=== PATIENT | male | born 1970 | race Caucasian/White ===

== ENCOUNTER 2021-01-19 14:36 | Inpatient (IN) | payer MEDICAID, SELFPAY ==
[2021-01-19] VITALS (33 sets, daily range): BP systolic 105–142; BP diastolic 56–88; PULSE 53–93; RESP 12–26; TEMP 36.6–37; O2SAT 95–99; BMI 22.3
--- NOTE | ~2021-01-19 | XR_ITS ---
EXAMINATION: XR chest 1V portable 01/19/2021 14:54 INDICATION: Shortness of breath PROCEDURE: AP portable chest COMPARISON: 10/10/2003 FINDINGS: The lungs are clear. The cardiomediastinal silhouette is within normal limits. There are no pleural effusions. There is no pneumothorax suspected. IMPRESSION: 1: NO ACUTE CARDIOPULMONARY DISEASE. Reviewed, dictated and finalized at location A.
--- NOTE | ~2021-01-19 | MR_ITS ---
EXAMINATION: MR brain/brain stem wo/w con EXAM DATE: 01/20/2021 09:29 INDICATION: Stroke symptoms, slurred speech, right arm. TECHNIQUE: Magnetic resonance imaging (MRI) of the brain/brain stem obtained without contrast. Sagit marry T1, axial diffusion, gradient echo (T2*), T1, T2, FLAIR sequences obtained. Patient was then inj ected with 14 cc intravenous Multihance contrast. Axial and coronal postcontrast T1 weighted sequence s obtained. Comparison is made to prior examination from 01/19/2021. FINDINGS: There is acute left-sided lacunar infarction along the posterior limb of the internal capsu le, posterior aspect of the putamen. No larger territorial infarctions. There is no acute hemorrhage seen on the T2*, a hemosiderin sensitive sequence. No intraparenchymal brain mass. The ventricles a re normal in size. There are no extra-axial collections. Flow voids are seen in the cerebral arteri es on the T2-weighted sequences consistent with their expected patency. The orbits are unremarkable. Soft tissue is unremarkable. IMPRESSION: Acute left internal capsular/putamen lacunar infarction. Reviewed, dictated and finalized at location A.
--- NOTE | ~2021-01-19 | CT_ITS ---
EXAMINATION: CTA brain carotid DATE: 01/19/2021 16:12 CDT INDICATION: Right arm numbness and slurred speech. TECHNIQUE: Computed tomographic angiography (CTA) of the head was performed without and with 100 mL O mnipaque-350 intravenous contrast. CTA of the neck was performed with intravenous contrast. The dose- length product was 1773.83 mGy-cm. Maximum intensity projection and volume rendered 3D-reconstruction s were created by the technologist on a separate workstation. Automated exposure control and iterativ e reconstruction technique were employed. COMPARISON: None. FINDINGS: HEAD CT/CTA: Normal brain parenchymal volume. No acute intracranial hemorrhage, infarction, mass or m ass effect. No ventriculomegaly or midline shift. Basilar cisterns are patent. Paranasal sinuses and mastoids are pneumatized. No depressed skull fractures. Structures of the posterior fossa are unremar kable. The major intracerebral arteries are within normal limits without evidence for aneurysm, steno sis, occlusion. NECK CTA: The visualized aspects of the aorta and great vessels are within normal limits. The common carotid, internal carotid and vertebral arteries are within normal limits. No evidence for significan t stenosis, occlusion or dissection. There is 0% stenosis of the proximal right internal carotid artery relative to normal distal artery l umen diameter (NASCET criteria). There is 0% stenosis of the proximal left internal carotid artery re lative to normal distal artery lumen diameter. IMPRESSION: 1: No acute intracranial abnormality. 2: No significant intracranial or cervical vascular abnormalities. Reviewed, dictated and finalized at location A.
--- NOTE | ~2021-01-19 | US_ITS ---
EXAMINATION: US carotid duplex BI EXAM DATE: 01/20/2021 09:44 INDICATION: Left internal capsule and putamen acute lacunar infarction. Stroke like symptoms. TECHNIQUE: Grayscale, color and pulsed Doppler images of the cervical carotid arteries were obtained . The degree of vessel stenosis is placed in one of the following categories: normal, <50% stenosis, 50-69% stenosis, >=70% stenosis but less than near-occlusion, near-occlusion, or occlusion. Note that percent stenosis relative to normal distal artery lumen diameter is indirectly measured from velocit y measurements as described by Beau, et al. Radiology 2003; 229:340-346. There is no prior study fo r comparison. FINDINGS: RIGHT SIDE: Right common carotid artery peak systolic velocity (PSV in cm/s): 92 Right bulb/internal carotid artery peak systolic velocity (PSV in cm/s): 70 Right internal carotid artery end diastolic velocity (EDV in cm/s): 22 Right ICA/CCA peak systolic ratio: 0.8 Right external carotid artery peak systolic velocity (PSV in cm/s): 79 Right vertebral artery antegrade flow: yes There is no focal plaque identified. LEFT SIDE: Left common carotid artery peak systolic velocity (PSV in cm/s): 76 Left bulb/internal carotid artery peak systolic velocity (PSV in cm/s): 64 Left internal carotid artery end diastolic velocity (EDV in cm/s): 22 Left ICA/CCA peak systolic ratio: 0.8 Left external carotid artery peak systolic velocity (PSV in cm/s): 51 Left vertebral artery antegrade flow: yes There is no focal plaque identified. IMPRESSION: 1. Normal right internal carotid artery. 2. Normal left internal carotid artery. Reviewed, dictated and finalized at location A.
--- NOTE | ~2021-01-19 | US_ITS ---
EXAMINATION: US venous doppler LE EXAM DATE: 01/21/2021 10:50 INDICATION: Stroke. ASD/PFO (axial septal defect/patent foramen ovale). TECHNIQUE: Multiple grayscale, color flow and Doppler images of the lower extremity deep venous syste ms bilaterally were obtained and reviewed. There is no prior study for comparison. FINDINGS: Right side: The right common femoral, femoral and profunda veins demonstrate normal color flow, respi ratory variation, augmentation and compressibility. Compressibility, color flow confirmed within the right popliteal, posterior tibial, peroneal, and greater saphenous veins. Left side: The left common femoral, femoral and profunda veins demonstrate normal color flow, respira tory variation, augmentation and compressibility. Compressibility, color flow confirmed within the l eft popliteal, posterior tibial, peroneal, and greater saphenous veins. IMPRESSION: No lower extremity deep venous thrombosis bilaterally. Reviewed, dictated and finalized at location A.
--- NOTE | 2021-01-19 14:42 | ECG_ITS ---
Measurements Intervals [place] Rate: 60 P: 79 SC: 126 QRS: 80 QRSD: 97 T: 70 QT: 362 QTc: 364 Interpretive Statements SINUS RHYTHM WITH SINUS ARRHYTHMIA POSSIBLE LEFT ATRIAL ENLARGEMENT INCOMPLETE RIGHT BUNDLE BRANCH BLOCK ST ELEVATION IN ANTERIOR LEADS- PROBABLY EARLY REPOLARIZATION ABNORMALITY BASELINE ARTIFACT- I, II, III, AVR, AVL, AVF, V1-V6 BORDERLINE ECG Electronically Signed On 01-19-2021 15:06:47 CDT by Demar Alejandro D.O.
--- NOTE | 2021-01-19 14:45 | ED.NEUROSD ---
HPI - Neuro Symptoms/Deficit General Chief Complaint: Suspected CVA Stated Complaint: r/o CVA Time Seen by Provider: 01/19/21 14:38 Source: patient Limitations: no limitations History of Present Illness HPI Narrative: 50-year-old male no past medical history has not seen a doctor in a few years complaining of right arm feels like it is falling asleep also has some slurred speech on arrival. Patient states symptoms started yesterday morning, he woke up with them. No previous history of same. Denies fall, denies headache, no vomiting. No chest pain, no palpitations no shortness of breath. Arrives alert and oriented x3 answering all questions afebrile. Onset (ago): day(s) (28 hours) Related Data Home Medications Medication Instructions Recorded Confirmed No Home Medications 01/19/21 01/19/21 Allergies Allergy/AdvReac Type Severity Reaction Status Date / Time No Known Drug Allergies Allergy Unknown Verified 01/19/21 19:04 Review of Systems Review of Systems: CONSTITUTIONAL: no fever, no weight loss, no confusion EYES: no vision changes, no eye pain ENT: no rhinorrhea, no sore throat, no difficulty swallowing CARDIOVASCULAR: no chest pain, no leg edema, no palpitations RESPIRATORY: no cough, no shortness of breath, no hemoptysis GASTROINTESTINAL: no abdominal pain, no nausea, no vomiting, no diarrhea GENITOURINARY: no flank pain, no dysuria, no hematuria SKIN: no rash, no jaundice MUSCULOSKELETAL: no back pain, no trauma. NEUROLOGIC: No headache, no dizziness, no focal weakness, R arm numbness, mild dysarthria on arrival PSYCHIATRIC: No hallucinations, no suicidal ideation [facility] Past Medical History Medical History (Updated 01/19/21 @ 23:28 by Angelika Mcneal PA-C) Nicotine dependence Surgical History Surgical History (Updated 01/19/21 @ 23:23 by Angelika Mcneal PA-C) No history of previous surgery Family History Family History Mother Lung cancer Sibling Heart disease Social History Social History (Updated 01/19/21 @ 23:25 by Angelika Mcneal PA-C) Social History: Surrogate decision-maker: Marie Watts, sister. CODE STATUS: Full code. Smoking packs per day: 1 Smoking cigarettes per day: 20.0 Alcohol intake: never Substance use: never Substance use type: does not use Additional living arrangements comments: Lives in [place] with his son. Additional occupation/education comments: [employer]. Exam Narrative: General: alert, afebrile, answering all questions appropriately Head: normocephalic, atraumatic Eyes: EOMI bilaterally, anicteric, no injection ENT: dry mucous membranes, oropharynx patent, no rhinorrhea Neck: supple, trachea midline, no JVD Chest: equal chest rise bilaterally, no chest wall trauma noted Lungs: clear to auscultation bilaterally, respirations unlabored CV: regular rate, no ROSEMARY B, calf size equal bilaterally Abd: soft, non-distended, non-tender, no rebound, no gaurding, negative Lyn's EXT: no deformity noted, moving all extremities equally Skin: warm, dry, no pallor Neuro: alert, oriented x 3; CN 2-12 grossly intact, no dysarthria Psych: affect appropriate, though content normal Course Course Emergency Course: 1500 Spoke with hospitalist regarding admission for CVA; patient and family now agree with plan. Reevaluation(s) Reevaluation #1: Reevaluated patient with family. No longer has any facial drooping but he does have slurred speech. No pronator drift, no focal weakness. Patient thinking about leaving advised that would be AGAINST MEDICAL ADVICE Date: 01/19/21 Time: 17:22 Vital Signs Vital signs: Vital Signs Pulse Rate 70 01/19/21 14:42 Respiratory Rate 15 01/19/21 14:42 Pulse Oximetry 99 01/19/21 14:42 Temperature 37.0 C 01/19/21 22:00 Pulse Rate 54 L 01/20/21 00:00 Respiratory Rate 16 01/19/21 22:00 Blood Pressure 105/56 L 01/19/21 22:00
[2021-01-19 14:54] LABS: Basophils Absolute Auto 0.1 K/mm3 (0.0-0.1); Basophils Percent Auto 0.6 % (0.2-1.2); Eosinophils Absolute Auto 0.1 K/mm3 (0-0.3); Eosinophils Percent Auto 1.4 % (0-4.4); Hematocrit 46.6 % (42.0-52.0); Hemoglobin 15.9 g/dL (14.0-18.0); Immature Granulocyte Absolute 0.03 K/mm3 (0.00-0.031); Immature Granulocyte Percent A 0.4 % (0-0.5); Lymphocytes Absolute Auto 2.82 K/mm3 (0.9-3.2); Lymphocytes Percent Auto 33.1 % (18.3-44.2); Mean Corpuscular HGB Conc 34.1 g/dl (32-36); Mean Corpuscular Hemoglobin 33.6 pg (26-34); Mean Corpuscular Volume 98.5 fl (80-100); Mean Platelet Volume 9.7 fl (7.4-10.4); Monocytes Absolute Auto 0.5 K/mm3 (0.1-0.6); Monocytes Percent Auto 5.9 % (2.6-8.5); Neutrophils Percent Auto 58.6 % (45.5-73.1); Platelet Count Result 215 k/mm3 (150-375); Red Blood Count 4.73 M/mm3 (4.6-6.20); Red Cell Distribution Width 12.8 % (11.5-14.5); White Blood Count 8.5 K/mm3 (4.5-10.0)
[2021-01-19 15:04] LABS: INR 0.8; Prothrombin Time 11.5 Seconds (11.1-14.7)
[2021-01-19 15:05] LABS: Partial Thromboplastin Time 24.1 SECONDS (22.3-36.8)
[2021-01-19 15:08] LABS: Alanine Aminotransferase 22 U/L (4-50); Albumin Level 4.7 g/dL (3.5-5.1); Alkaline Phosphatase 60 U/L (38-126); Anion Gap 8 mmol/L (8-16); Aspartate Amino Transferase 27 U/L (17-59); Bilirubin,Total 0.6 mg/dL (0.2-1.3); Blood Urea Nitrogen 9 mg/dL (9-20); Calcium 9.6 mg/dL (8.4-10.2); Carbon Dioxide 28 mmol/L (22-30); Chloride 104 mmol/L (98-107); Estimated CRCL calculation 90 ml/min; Estimated Glomerular Filt Rate > 60; Glucose 107 mg/dL (65-110); Potassium 4.3 mmol/L (3.4-5.0); Sodium 140 mmol/L (137-145)
[2021-01-19 15:20] LABS: Troponin I < 0.012 ng/mL (0.000-0.034)
[2021-01-19] MEDS: ASPIRIN 325 MG TABLET PO (17:54)
--- NOTE | 2021-01-19 19:00 | PM.IMHP ---
H&P: HPI History of Present Illness Date/Time: 01/19/21 20:00 Chief Complaint: Slurred speech and right arm weakness. Narrative: This is a very pleasant 50-year-old male smoker without any significant medical history presented to emergency department earlier today via private vehicle from home for evaluation of slurred speech and right arm weakness. He woke up on Wednesday morning with a strange feeling in his right upper extremity that he has a difficult time describing, perhaps blunted sensation but he also noticed mild dexterity issues in the fingers, for instance he was having a difficult time writing. He also had some mild paresthesias in the right lower lip. Later on that day his son noticed that his speech was slurred and as his symptoms had not improved today he decided to come in for evaluation. CTA of the head and neck done on arrival to the emergency department showed no acute abnormalities. He is being admitted in this setting for further work-up. At the time my evaluation he has no specific complaints. He specifically denies headache, vertigo, auditory and visual changes, focal weakness, facial droop, and dysphagia. No history of cardiac dysrhythmia however he has previously had fleeting and self-limiting episodes of fluttering in his chest never lasting more than 5 seconds. That has not occurred recently. Review of Systems Review of Systems: 12 systems were reviewed. No fever, chills, or sweats. No recent cold or flu symptoms. Weight has remained stable. No sick contacts. No chest pain or shortness of breath. No cough. No nausea, vomiting, diarrhea, or dysuria. Except as documented, all other systems were reviewed and are negative. [facility] Past Medical History Medical History (Updated 01/19/21 @ 23:28 by Angelika Mcneal PA-C) Nicotine dependence Surgical History Surgical History (Updated 01/19/21 @ 23:23 by Angelika Mcneal PA-C) No history of previous surgery Family History Family History Mother Lung cancer Sibling Heart disease Social History Social History (Updated 01/19/21 @ 23:25 by Angelika Mcneal PA-C) Social History: Surrogate decision-maker: Marie Watts, sister. CODE STATUS: Full code. Smoking packs per day: 1 Smoking cigarettes per day: 20.0 Alcohol intake: never Substance use: never Substance use type: does not use Additional living arrangements comments: Lives in [place] with his son. Additional occupation/education comments: [employer]. Meds Home Medications and Allergies Home Medications Medication Instructions Recorded Confirmed Type No Home Medications 01/19/21 01/19/21 History Allergies Allergy/AdvReac Type Severity Reaction Status Date / Time No Known Drug Allergies Allergy Unknown Verified 01/19/21 19:04 Vital Signs Vital Signs - 24 hr 01/19/21 14:42 01/19/21 14:43 01/19/21 14:45 Temperature Pulse Rate 70 76 Respiratory Rate 15 13 14 Blood Pressure 138/81 Pulse Oximetry 99 98 97 01/19/21 14:46 01/19/21 14:51 01/19/21 15:00 Temperature 97.8 F Pulse Rate 76 78 67 Respiratory Rate 12 14 13 Blood Pressure 135/81 135/81 Pulse Oximetry 98 98 96 01/19/21 15:01 01/19/21 15:02 01/19/21 15:15 Temperature Pulse Rate 67 70 55 L Respiratory Rate 15 14 12 Blood Pressure 124/84 Pulse Oximetry 97 96 01/19/21 15:16 01/19/21 15:30 01/19/21 15:31 Temperature Pulse Rate 56 L 53 L Respiratory Rate 13 13 Blood Pressure 126/73 123/76 Pulse Oximetry 96 95 01/19/21 15:47 01/19/21 15:49 01/19/21 16:00 Temperature Pulse Rate 93 82 58 L Respiratory Rate 20 26 H 13 Blood Pressure 135/85 Pulse Oximetry 96 99 97 01/19/21 16:01 01/19/21 16:16 01/19/21 16:30 Temperature Pulse Rate 62 55 L 56 L Respiratory Rate 14 14 14 Blood Pressure 121/70 118/76 Pulse Oximetry 98 97 97 01/19/21 16:31 01/19/21 16:45 01/19/21 16:4
--- NOTE | 2021-01-19 19:01 | ADMGEN ---
This patient, Alex Gutierrez, was admitted to Medical Room 347-. Patient/family oriented to hospital policies and general routines including ID bracelet, bed and alarms, visiting hours, pain management, procedures, bathroom and other care routines, personal items, smoking policy, room service/diet, and visiting hours. Information on how to activate the Rapid Response Team has been discussed. Patient/Family are encouraged to report perceived risks to care and to ask questions if they do not understand what they are told or what they should do.
[2021-01-19 21:15] LABS: Troponin I < 0.012 ng/mL (0.000-0.034)
[2021-01-20] VITALS (10 sets, daily range): BP systolic 105–115; BP diastolic 57–79; PULSE 48–72; RESP 16–18; TEMP 35.8–36.9; O2SAT 96–97
--- NOTE | 2021-01-20 | ECHO_ITS ---
Patient Info Name: Alex Gutierrez Age: 50 years : 1970 Gender: Male Ht: 71 in Wt: 159 lbs BSA: 1.90 m2 HR: 52 bpm BP: 105 / 79 mmHg Heart Rhythm: Sinus Rhythm Technical Quality: Good Exam Date: 01/20/2021 10:47 AM Exam Location: [facility] Pulmonary Exam Room: [facility] Patient Status: Inpatient Admit Date: 01/19/2021 Staff Ordering Physician: Angelika Mcneal PA-C Info Analyst: Lashanda Ryan RDCS Attending Provider: Jayda Lake PA-C Referring Physician: Fredis SCOTT; Exam Type: CA echo doppler w bubble study Study Info Indications - stroke symptoms Complete two-dimensional, color flow and Doppler transthoracic echocardiogram is performed with agitated saline. Contrast/Agitated Saline Contrast/Ag. Saline: Agitated Saline Amount: --- ml Administered By: Swetha Medina RN Existing IV Access: Yes IV Access Condition: patent with no signs of infiltration New IV Access: Left Summary 1. Left ventricular chamber dimension is normal. 2. Left ventricular systolic function is normal, estimated at 65-70%. 3. There is no increased left ventricular wall thickness. 4. The left ventricular diastolic function is grade I diastolic dysfunction. 5. Intracardiac shunt at the atrial level with and without Valsalva suggestive of small ASD versus PFO. 6. There is no mitral valve regurgitation. 7. There is trace tricuspid valve regurgitation. 8. No pulmonary hypertension, estimated pulmonary arterial systolic pressure is 31 mmHg. Recommendations * Consider transesophageal echocardiogram if clinically indicated. Left Ventricle Left ventricular chamber dimension is normal. Left ventricular systolic function is normal, estimated at 65-70%. There is no increased left ventricular wall thickness. The left ventricular diastolic function is grade I diastolic dysfunction. Right Ventricle Right ventricular chamber dimension is normal. Right ventricular systolic function is normal. Left Atria Left atrial chamber dimension is normal. Right Atria Right atrial chamber dimension is normal. Atrial Septum Intracardiac shunt at the atrial level with and without Valsalva suggestive of small ASD versus PFO. Aortic Valve The aortic valve is probable trileaflet. There is no aortic valve stenosis. There is no aortic valve regurgitation. Pulmonic Valve The pulmonic valve is not well visualized. Mitral Valve The mitral valve has normal leaflets. There is no mitral valve regurgitation. Tricuspid Valve The tricuspid valve leaflets are normal. There is trace tricuspid valve regurgitation. No pulmonary hypertension, estimated pulmonary arterial systolic pressure is 31 mmHg. Pericardium/Pleural The pericardium appears normal. There is no pericardial effusion. Inferior Vena Cava Normal inferior vena cava with >50% collapse upon inspiration consistent with normal right atrial pressure, 5 mmHg. Aorta The aortic root size at the sinus of Valsalva is normal. Left Ventricular Outflow Tract Name Value Normal LVOT 2D LVOT Diameter 2.0 cm LVOT Doppler
[2021-01-20 06:20] LABS: LDL Cholesterol Direct 139 mg/dL
[2021-01-20 06:23] LABS: Cholesterol 180 mg/dL (0-200); HDL Direct 39 mg/dL; Triglycerides 92 mg/dL (<150)
[2021-01-20] MEDS: ASPIRIN 81 MG ENTERIC TABLET PO (08:10)
[2021-01-20] MEDS: ATORVASTATIN 40 MG TABLET PO (12:54)
--- NOTE | 2021-01-20 13:13 | PCPTNOTE ---
On 01/20/21, the student, Keanu Melendez, provided care and completed [facility] documentation on this patient. I have reviewed the student's documentation and agree with the findings.
--- NOTE | 2021-01-20 13:27 | ECG_ITS ---
Measurements Intervals [place] Rate: 52 P: 0 MA: 129 QRS: 81 QRSD: 96 T: 77 QT: 380 QTc: 355 Interpretive Statements SINUS BRADYCARDIA CANNOT RULE OUT SEPTAL INFARCT, AGE INDETERMINATE ABNORMAL ECG Electronically Signed On 01-20-2021 13:41:13 CDT by Demar Alejandro D.O.
[2021-01-20 14:20] LABS: Cholesterol 199 mg/dL (0-200); HDL Direct 44 mg/dL; Triglycerides 57 mg/dL (<150)
[2021-01-20 14:30] LABS: LDL Cholesterol Direct 144 mg/dL
[2021-01-20 15:02] LABS: Hemoglobin A1C 5.3 % (<5.7)
--- NOTE | 2021-01-20 15:58 | WPDNEURCNPN ---
Consult date: 01/20/21 HPI: Alex Gutierrez is a 50 year old male has been admitted to the hospital through the emergency room for the complaints of slurred speech and right upper extremity weakness via private vehicle from his home reportedly he woke up on Wednesday morning with a strange feeling in his right upper extremity that is blunted sensation and dexterity issues in the fingers like difficulties in right with mild paresthesia in the right lower hip as well subsequently his son observed that his speech was slurred and symptoms were not improving after coming to the ER CT of the head and neck was done which revealed no acute abnormalities he was admitted to the hospital for further evaluation he gave no history of associated headache or vertiginous dizziness or any other neurological deficit in the past. He has nicotine dependent but has had no previous surgeries his smoking history is 20 cigarettes per day though he does not drink, he was not taking any medication and he is not allergic to any medication. Evaluation up until now includes , normal CBC normal coagulation profile, normal chemistry with hemoglobin A1c only 5.3, normal CTA with normal right and left internal carotid arteries, acute left internal capsule and putamen lacunar infarct on the MRI of the brain [facility] Past Medical History Medical History (Updated 01/19/21 @ 23:28 by Angelika Mcneal PA-C) Nicotine dependence Surgical History Surgical History No history of previous surgery Family History Family History Mother Lung cancer Sibling Heart disease Social History Social History Social History: Surrogate decision-maker: Marie Watts, sister. CODE STATUS: Full code. Smoking packs per day: 1 Smoking cigarettes per day: 20.0 Alcohol intake: never Substance use: never Substance use type: does not use Additional living arrangements comments: Lives in [place] with his son. Additional occupation/education comments: [employer]. Meds Home Medications and Allergies Home Medications Medication Instructions Recorded Confirmed Type No Home Medications 01/19/21 01/19/21 History Allergies Allergy/AdvReac Type Severity Reaction Status Date / Time No Known Drug Allergies Allergy Unknown Verified 01/19/21 19:04 Vital Signs Vital Signs - 24 hr 01/19/21 16:00 01/19/21 16:01 01/19/21 16:16 Temperature Pulse Rate 58 L 62 55 L Respiratory Rate 13 14 14 Blood Pressure 121/70 118/76 Pulse Oximetry 97 98 97 01/19/21 16:30 01/19/21 16:31 01/19/21 16:45 Temperature Pulse Rate 56 L 59 L 57 L Respiratory Rate 14 14 14 Blood Pressure 115/77 Pulse Oximetry 97 97 95 01/19/21 16:46 01/19/21 17:00 01/19/21 17:02 Temperature Pulse Rate 59 L 60 63 Respiratory Rate 14 15 16 Blood Pressure 117/79 116/64 Pulse Oximetry 96 96 98 01/19/21 17:15 01/19/21 17:16 01/19/21 17:30 Temperature Pulse Rate 67 70 76 Respiratory Rate 15 15 13 Blood Pressure 132/88 Pulse Oximetry 96 99 98 01/19/21 17:31 01/19/21 17:45 01/19/21 17:46 Temperature Pulse Rate 67 67 64 Respiratory Rate 15 15 14 Blood Pressure 142/77 H 122/86 Pulse Oximetry 98 96 98 01/19/21 18:00 01/19/21 18:16 01/19/21 20:00 Temperature Pulse Rate 66 57 L 76 Respiratory Rate 13 14 Blood Pressure 122/72 Pulse Oximetry 96 96 01/19/21 22:00 01/20/21 00:00 01/20/21 04:00 Temperature 37.0 C Pulse Rate 66 54 L 50 L Respiratory Rate 16 Blood Pressure 105/56 L Pulse Oximetry 96 01/20/21 06:00 01/20/21 08:05 01/20/21 13:18 Temperature 36.9 C Pulse Rate 52 L 67 72 Respiratory Rate 16 Blood Pressure 105/79 Pulse Oximetry 97 01/20/21 14:11 Temperature 35.8 C L Pulse Rate 48 L Respiratory Rate 16 Blood Pressure 107/57 L Pulse Oximetry 96 Results
--- NOTE | 2021-01-20 16:13 | PM.IMPN ---
Progress Note: A&P Assessment and Plan (1) Acute CVA (cerebrovascular accident): Code(s): I63.9 - Cerebral infarction, unspecified Status: Acute Assessment and Plan: Presented with stroke-like symptoms ongoing for 36 hours including slurred speech, right lip paresthesia, and dexterity issues of the right hand Head/neck CTA showed no acute intracranial abnormalities Follow-up brain MRI showed acute left internal capsular/putamen lacunar infarct Carotid Dopplers with normal left and right internal carotid arteries Echocardiogram showed preserved EF, no significant valvular disease, and intracardiac shunt at the atrial level (see below) Telemetry reviewed. He did have 2-3 alarms on telemetry that appeared slightly abnormal, therefore repeat EKG obtained and showed sinus bradycardia. He will benefit from 30 day cardiac cath lab manager prior to discharge Appreciate neurology consultation Continue aspirin Start atorvastatin. Lipid panel reviewed and is within normal limits Smoking cessation is imperative Appreciate PT/OT/ST bello. He will benefit from continued speech therapy (2) Interatrial cardiac shunt: Code(s): Q24.8 - Other specified congenital malformations of heart Status: Acute Assessment and Plan: Echocardiogram with bubble study showed intracardiac shunt at the atrial level with and without Valsalva suggestive of small ASD vs PFO Consultation to cardiology; input is appreciated Continue to monitor on telemetry (3) Nicotine dependence: Code(s): F17.200 - Nicotine dependence, unspecified, uncomplicated Status: Acute Assessment and Plan: Patient smokes 1 pack per day I discussed smoking cessation with him for 5 minutes. He verbalized understanding He is motivated to quit smoking. Continue to reinforce Subjective Date/time seen: 01/20/21 16:13 Interval history: Date of service: 01/21/2020 Alex Gutierrez is a 50 year old [id number] male with a history of tobacco abuse who is seen in follow-up for acute CVA. He continues to endorse slurred speech. He states he knows what he wants to say and is able to come up with the words but his mouth has difficulty speaking the words. He states his tongue is not moving to pronounce the words properly. No difficulty with understanding speech. He also states that he noted his penmanship seems off. He said he felt like he could write better with his left hand than with his dominant right. Otherwise, he has no additional concerns. No paresthesias. He denies any weakness. No gait abnormalities. He denies dizziness or lightheadedness. Denies headaches. No confusion. No visual changes. No dysphagia. No issues with balance. He denies shortness breath, cough, chest pain or palpitations. Denies abdominal pain, nausea, or vomiting. He does note 2 episodes of loose stool today. He has been eating well. He is very eager to return home to his son and his dog. Review of Systems Review of Systems: All systems reviewed & are unremarkable except as noted in HPI and below Exam Narrative: Mr. Gutierrez is a thin, well-appearing 50-year-old male who is sitting up in bed. He appears comfortable and is in NARD. Neuro: awake, alert and oriented x4, answers all questions appropriately, able to follow commands and identify objects. Speech is slightly slurred. Tongue deviates to right just slightly. CN II-XII intact, strength 5/5 throughout, sensation intact, no pronator drift, bilateral engineer remote control diesel strength equal, able to perform rapid alternating movements, able to perform finger to nose, gait normal HEENMT: normocephalic, atraumatic, EOMI, sclerae anicteric Neck: supple, no lymphadenopathy Respiratory: clear to auscultation bilaterally, nonlabored breathing Cardio: regular rate, regular rhythm with S1-S2 Abdomen: nondistended, normoactive bowel sounds, soft, nontender to palpation Extremities: no edema, erythema, or tende
[2021-01-20] MEDS: SACCHAROMYCES BOULARDII 250 MG CAPSULE PO (16:30)
[2021-01-21 04:00] VITALS: PULSE 44
[2021-01-21 05:34] VITALS: BP 119/50; PULSE 91; RESP 17; TEMP 36.4; O2SAT 98
[2021-01-21 08:00] VITALS: PULSE 55
[2021-01-21] MEDS: ATORVASTATIN 40 MG TABLET PO (09:10)
[2021-01-21] MEDS: SACCHAROMYCES BOULARDII 250 MG CAPSULE PO (09:10)
[2021-01-21] MEDS: ASPIRIN 81 MG ENTERIC TABLET PO (09:10)
--- NOTE | 2021-01-21 10:10 | PM.CNCAR ---
Assessment and Plan Assessment and plan (1) Acute CVA (cerebrovascular accident): Code(s): I63.9 - Cerebral infarction, unspecified Status: Acute Assessment and Plan: Patient presents with symptoms consistent with acute left internal capsule or /putamen lacunar infarction with right-sided facial and upper extremity weakness improving since admission. Started on appropriate medical therapy with aspirin 81 mg daily and atorvastatin 40 mg at bedtime. precise mechanism remains unclear. However, given presence of likely small atrial septal defect clearly seen on 2D echocardiogram possible this is reflective of a paradoxical embolic event. Discussed the implications in this regard as far as management, lifestyle modifications including diet exercise immediate and absolute smoking cessation, blood pressure control compliance with medications particularly aspirin and statin therapy. We also discussed potential role for ASD closure. Explained further workup to exclude arrhythmia contribution such as atrial fibrillation and or flutter which may result in increased risk for intracardiac thrombus formation most often in the left atrial appendage which would require full systemic anticoagulation to adequately reduce CVA risk. Although he reports rare brief fluttering there is no documentation to date of atrial fibrillation/ flutter as contribution. I explained the importance of excluding this as a cause initially wearing a 30 day air sampling and monitoring as an outpatient. Patient is in agreement with this plan of care. Discussed transesophageal echocardiogram for more definitive evaluation of PFO/ ASD and to exclude intracardiac thrombus which would be unlikely. Explained had this may change our management with regards to recommendation for systemic anticoagulation if intracardiac thrombus is identified. We discussed options patient wishes to pursue 30 day air sampling and monitoring as an outpatient and then consider transesophageal echocardiogram if appropriate. Explained my plan is to refer him to Dr. Rosalino Gonzalez at [place] for ASD/PFO closure if reasonable alternative diagnosis is not found. We also discussed the fact that there are multiple mechanisms for having a stroke. He does not endorse symptoms suggestive of DVT or pulmonary embolism. Nonetheless, we will exclude lower extremity DVT with venous Doppler prior to discharge. -After extensively discussing options for plan of care, risks versus benefits he prefers to pursue transesophageal echocardiogram as an outpatient if recommended after wearing 30 day air sampling and monitoring to exclude atrial fibrillation/flutter. Personal review of inpatient telemetry reveals no evidence of atrial flutter or atrial fibrillation to date. No clinical history suggestive of hyerpcoagulable state. From a cardiac perspective if lower extremity DVT negative may be discharged per hospitalist service to follow up with me as an outpatient in 6 weeks and to obtain a 30 day air sampling and monitoring from our office upon discharge. He should notify our office should he experience palpitations, worsening symptoms, near-syncope or syncope. Other precautions per hospitalist service at discharge. Spent 61 minutes in the care of this very pleasant gentleman including examination and bedside discussion/counseling, chart review, and medical decision making. (2) Interatrial cardiac shunt: Code(s): Q24.8 - Other specified congenital malformations of heart Status: Acute Assessment and Plan: 2D echocardiogram reveals probable small ASD versus PFO positive shunt study with injection of agitated saline with and without Valsalva. As above, discussed role transesophageal echocardiogram for further clarification, options and recommendations per guidelines for closure of ASD/PFO and anticipated referral to my colleague Dr. Rosalino Gonzalez at [place] for closure considerations if reasonable alternative explanation for stroke is not identified.
--- NOTE | 2021-01-21 12:43 | PM.DS ---
DS: Admitting Diagnosis Discharge Date 01/21/2021 Admitting Diagnosis Slurred speech and right arm weakness. DS: Discharge Diagnosis Discharge Diagnosis (1) Acute CVA (cerebrovascular accident): Code(s): I63.9 - Cerebral infarction, unspecified Status: Acute Assessment and Plan: Presented with stroke-like symptoms ongoing for 36 hours including slurred speech, right lip paresthesia, and dexterity issues of the right hand Head/neck CTA showed no acute intracranial abnormalities Follow-up brain MRI showed acute left internal capsular/putamen lacunar infarct Carotid Dopplers with normal left and right internal carotid arteries Echocardiogram showed preserved EF, no significant valvular disease, and intracardiac shunt at the atrial level Telemetry reviewed. He did have 2-3 alarms on telemetry that appeared slightly abnormal, therefore repeat EKG obtained and showed sinus bradycardia. 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 Smoking cessation is necessary Appreciate PT/OT/ST evaluation. He will benefit from continued speech therapy on dischrage (2) Interatrial cardiac shunt: Code(s): Q24.8 - Other specified congenital malformations of heart Status: Acute Assessment and Plan: Echocardiogram with bubble study showed intracardiac shunt at the atrial level with and without Valsalva suggestive of small ASD vs PFO Pt will follow up with cardiology (3) Nicotine dependence: Code(s): F17.200 - Nicotine dependence, unspecified, uncomplicated Status: Acute Assessment and Plan: Patient smokes 1 pack per day Strongly advised to quit smoking DS: Summary Hospital Course Hospital Course: Brenda is a 50 year old [id number] male with a history of tobacco abuse who is seen in follow-up for acute CVA. He continues to endorse slurred speech. He states he knows what he wants to say and is able to come up with the words but his mouth has difficulty speaking the words. Otherwise, he has no additional concerns. No paresthesias. He denies any weakness. No gait abnormalities. He denies dizziness or lightheadedness. Denies head Acute left internal capsular/putamen lacunar infarction. aches. No confusion. No visual changes. No dysphagia. No issues with balance. Pt has been found to have Acute left internal capsular/putamen lacunar infarction. on MRI brain, 1. Normal right internal carotid artery. 2. Normal left internal carotid artery.on US carotids. Intracardiac shunt at the atrial level with and without Valsalva suggestive of small ASD versus PFO. on ECHO Venous dopplers of legs are negative for clots Pt can be discharged today with follow up with cardiology and neurology. Pt can continue with PT/ OT/ ST at home. And can continue on ASA and statins. Time Spent with Patient Time attestation: Total time spent providing and/or coordinating discharge services:45 minutes on day of dischrage Exam Narrative: Mr. Gutierrez is a thin, well-appearing 50-year-old male who is sitting up in bed. Neuro: awake, alert and oriented x4, answers all questions appropriately, able to follow commands and identify objects. Speech is slightly slurred. Tongue deviates to right just slightly. CN II-XII intact, strength 5/5 throughout arms and legs, pt has poor hand grasp in his r hand HEENMT: normocephalic, atraumatic, EOMI, sclerae anicteric Neck: supple, no lymphadenopathy Respiratory: clear to auscultation bilaterally, nonlabored breathing Cardio: regular rate, regular rhythm with S1-S2 Abdomen: nondistended, normoactive bowel sounds, soft, nontender to palpation Extremities: no edema, erythema, or tenderness to palpation Skin: no rashes or lesions, warm and dry Psych: appropriate mood and affect, judgment and insight intact DS: Data Data Completed and Pending Labs on
== END 2021-01-21 14:30 | disposition home or self-care (01) | DRG 45 ==
LOC: ANHED 17:57 → ANH3MED 01-20 00:10
PROVIDERS: Physician Assistant; Admitting Provider Internal Medicine; Emergency Provider Emergency Medicine; PCP Internal Medicine; Visit Provider Physician Assistant
DX: I63.81 Other cerebral infarction due to occlusion or stenosis of small artery (principal); G83.21 Monoplegia of upper limb affecting right dominant side; R20.2 Paresthesia of skin; R47.81 Slurred speech; R29.701 NIHSS score 1; Q24.8 Other specified congenital malformations of heart; E78.2 Mixed hyperlipidemia; F17.210 Nicotine dependence, cigarettes, uncomplicated
CPT/HCPCS: 36415; 70496; 70498; 70553; 71045; 80053; 80061; 83036; 84484; 85025; 85610; 85730; 92523; 93005; 93306; 93880; 93970; 96375; 97161; 97165; 99285; A9270; A9577; Q9967

== ENCOUNTER → 2021-05-26 00:40 | Outpatient (CLI) | payer OTHER, SELFPAY ==
[2021-05-26 17:08] LABS: SARS-CoV-2 RNA PCR Negative
== END ==
PROVIDERS: PCP Internal Medicine; Visit Provider Internal Medicine Cardiovascular Disease
DX: Z20.822 Contact with and (suspected) exposure to COVID-19 (principal)
CPT/HCPCS: C9803; U0003; U0005